=== PATIENT | female | born 1940 | race Two or more races ===

== ENCOUNTER 2021-11-20 19:02 | Emergency (ER) | payer MEDICARE, OTHER ==
[~2021-11-20] VITALS: Ht 154.9 cm; Wt 54.4 kg
[2021-11-21] MEDS ORDERED: LORazepam 2MG/ML-1ML VIAL ONE (06:30)
[2021-11-21] MEDS ORDERED: HALOPERIDOL LACTATE 5 MG/ML INJ VIAL IM PRN (06:30)
[2021-11-21] MEDS ORDERED: LORazepam 2MG/ML-1ML VIAL IM ONE (06:30)
[2021-11-21 17:30] VITALS: BP 145/58
== END 2021-11-21 18:03 | disposition home or self-care (01) ==
LOC: EDBD 19:02 → ER 19:09
DX: S40.022A Contusion of left upper arm, initial encounter (principal); G30.9 Alzheimer's disease, unspecified; F02.80 Dementia in other diseases classified elsewhere, unspecified severity, without behavioral disturbance, psychotic disturbance, mood disturbance, and anxiety; X58.XXXA Exposure to other specified factors, initial encounter; Y93.89 Activity, other specified; Y92.89 Other specified places as the place of occurrence of the external cause; Y99.8 Other external cause status
CPT/HCPCS: 70450; 71045; 73080; 93005; 96372; 99285; J1630; J2060

== ENCOUNTER 2025-07-21 04:55 | Inpatient (IN) | payer MEDICARE, OTHER ==
[~2025-07-21] VITALS: Ht 162.6 cm; Wt 74.5 kg
--- NOTE | 2025-07-21 05:16 | ED.PDOC ---
History of Present Illness HPI Comments The patient states that is Giovanni Ferrell and was found today on the floor complaining of left hip pain and left arm pain. The patient is not on any blood thinner. The fall was unwitnessed at this time. The patient does has a history of dementia in his a poor historian. Upon arrival, she is pointing to her left humeral area as well as the left hip. Chief Complaint: Lower Extremity Time Seen by MD: 05:02 Reviewed Notes: Nurses Notes, Swimming Pool Maintenance Supervisor Notes, Medications, Allergies Allergies: Coded Allergies: NO KNOWN ALLERGIES (Unverified , 11/21/21) Information Source: Patient, Emergency Med Personnel Mode of Arrival: EMS Severity: Moderate Timing: Hours Duration: Since onset Prehospital treatment: None Location: Left hip pain and left humeral pain Past Medical History PAST MEDICAL HISTORY: Alzheimer, Dementia Surgical History: Denies all surgeries FORECLOSURE PARALEGAL History: Denies all FORECLOSURE PARALEGAL Hx Family History Family History: Reviewed,noncontributory to illness Social History Smoker: Non-Smoker Alcohol: Denies ETOH Use Drugs: Denies Drug Use Lives In: Long-Term Constitutional: denies: chills, diaphoresis, fatigue, fever, malaise, sweats, weakness, others EENTM: denies: blurred vision, double vision, ear bleeding, ear discharge, ear drainage, ear pain, ear ringing, eye pain, eye redness, hearing loss, mouth pain, mouth swelling, nasal discharge, nose bleeding, nose congestion, nose pain, photophobia, tearing, throat pain, throat swelling, voice changes, others Respiratory: denies: cough, hemoptysis, orthopnea, SOB at rest, shortness of breath, SOB with excertion, stridor, wheezing, others Cardiovascular: denies: chest pain, dizzy spells, diaphoresis, Dyspnea on exertion, edema, irregular heart beat, left arm pain, lightheadedness, palpitations, PND, syncope, others Gastrointestinal: denies: abdomen distended, abdominal pain, blood streaked bowels, constipated, diarrhea, dysphagia, difficulty swallowing, hematemesis, melena, nausea, poor appetite, poor fluid intake, rectal bleeding, rectal pain, vomiting, others Genitourinary: denies: abnormal vagina bleeding, burning, dyspareunia, dysuria, flank pain, frequency, hematuria, incontinence, pain, , vagina discharge, urgency, others Neurological: denies: dizziness, fainting, headache, left sided numbness, left sided weakness, numbness, paresthesia, pre-existing deficit, right sided numbness, right sided weakness, seizure, speech problems, tingling, tremors, weakness, others Musculoskeletal: reports: others (Left arm pain and left hip pain); denies: back pain, gout, joint pain, joint swelling, muscle pain, muscle stiffness, neck pain Integumetry: denies: bruises, change in color, change in hair/nails, dryness, laceration, lesions, lumps, rash, wounds, others Allergic/Immunocompromised: denies: Difficulty Healing, Frequent Infections, Hives, Itching, others Hematologic/Lymphatic: denies: anemia, blood clots, easy bleeding, easy bruising, swollen glands, others Endocrine: denies: excessive hunger, excessive sweating, excessive thirst, excessive urination, flushing, intolerance to cold, intolerance to heat, unexplained weight gain, unexplained weight loss, others Psychiatric: denies: anxiety, bipolar disorder, depression, hopeless, panic disorder, schizophrenia, sleepless, suicidal, others Physical Exam General Appearance: Moderate Distress, Obese HEENT: Normal ENT Inspection, Pharynx Normal, TMs Normal Neck: Full Range of Motion, Non-Tender, Normal, Normal Inspection Respiratory: Chest Non-Tender, Lungs Clear, No Accessory Muscle Use, No Res piratory Distress, Normal Breath Sounds Cardiovascular: No Edema, No JVD, No Murmur, No Gallop, Normal Peripheral Pulses, Regular Rate/Rhythm Breast Exam: Deferred Gastrointestinal: No Organomegaly, Non Tender, No Pulsatile Mass, Normal Bowel Sounds, Soft Genitalia: Deferred Pelvic: Deferred Rectal: Deferred Extremities: No calf tenderness, Normal capillary refill, No pedal edema, Tender Musculoskeletal : Location: Left Extremity Location: Arm, Hip Apperance: Limited ROM, Tenderness: Moderate Neurologic: Alert, book retailer II-XII nml as Tested, No Motor Deficits, Normal Affect, Normal Mood, No Sensory Deficits Cerebellar Function: Normal Reflexes: Normal Skin: Dry, Normal Color, Warm Lymphatic: No Adenopathy Was a procedure done? Was a procedure done?: No Differential Dx Considerations may include: Fracture, strain, dislocation X-Ray, Labs, Meds, VS Vital Signs Date Time Temp Pulse Resp B/P (MAP) Pulse Ox O2 Delivery O2 Flow Rate FiO2 07/21/25 05:48 97.8 74 16 156/57 (90) 95 97.8 07/21/25 04:55 98.1 84 18 127/81 98 98.1 EKG done The patient will be signed out to Dr. Branch Images Reviewed?: Images reviewed and evaluated by me Time of 1ST Reevaluation: 05:16 Reevaluation 1ST: Unchanged Patient Education/Counseling: Other (The patient has dementia) Family Education/Counseling: No Family Present SEPSIS Sepsis Screen Physician Orders Complete Blood Count (07/21/25 05:06) Basic Metabolic Panel (07/21/25 05:06) Heplock Iv (07/21/25 05:06) Electrocardigram (07/21/25 05:06) L Hip Complete Xray (07/21/25 05:06) L Humerus Xray (07/21/25 05:06) Vital Signs Date Time Temp Pulse Resp B/P (MAP) Pulse Ox O2 Delivery O2 Flow Rate FiO2 07/21/25 05:48 97.8 74 16 156/57 (90) 95 97.8 07/21/25 04:55 98.1 84 18 127/81 98 98.1 Departure 1 Departure Time of Disposition: 05:54 Impression: Primary Impression: History of fall Disposition: 30 STILL A PATIENT Condition: Fair Critical Care Note Critical Care Time?: No Stability Stability form required: Yes Unstable for transfer: ED Physician Assesment (Clinical assesment) Heart Score Heart Score: Heart Score Response (Comments) Value History N/A 0 EKG N/A 0 Age N/A 0 Risk Factors N/A 0 Troponin N/A 0 Total 0 ADAM MCCARTY MD Jul 21, 2025 05:16
--- NOTE | 2025-07-21 05:54 | ECG ---
[facility], [place] Test Date: 2025-07-21 Test Time: 05:49:11 Pat Name: LORY REA Department: ED Room: 0276 Gender: F Cable Inspector: CHARLOTTE : 1940 Requested By: ADAM MCCARTY Order Number: [id number] Reading MD: Julio Holloway Measurements Intervals [place] Rate: 75 P: 61 MN: 156 QRS: 30 QRSD: 128 T: 89 QT: 399 QTc: 446 Interpretive Statements Sinus rhythm Left bundle branch block Electronically Signed On 07-21-2025 17:51:09 PST by Julio Holloway Please click the below link to view image of tracing.
[2025-07-21] MEDS: KETOROLAC TROMETH 30 MG/ML 1ML VIAL IV ONE (07:15)
[2025-07-21 07:19] LABS: Potassium 5.0 mmol/L (3.5-5.1); Sodium 143 mmol/L (136-145)
[2025-07-21 07:20] LABS: Anion Gap 11 (5-15); Calcium 9.3 mg/dL (8.7-10.4); Carbon Dioxide 24 mmol/L (20-31)
[2025-07-21 07:23] LABS: Chloride 108 mmol/L (98-107)
[2025-07-21 07:25] LABS: BUN/Creatinine Ratio 16.7 (10.0-20.0); Blood Urea Nitrogen 14 mg/dL (9-23); Glucose 87 mg/dL (74-106)
--- NOTE | 2025-07-21 07:31 | DVH ---
EXAM: XY L HUMERUS XRAY HISTORY: fsll COMPARISON: None TECHNIQUE: AP and lateral views of the left humerus were performed. FINDINGS/IMPRESSION: No acute fracture of the left humerus.
--- NOTE | 2025-07-21 07:33 | DVH ---
PROCEDURE: Left hip radiographs. INDICATION: fall TECHNIQUE: 3 frontal views of the pelvis /Left hip were obtained. COMPARISON: None FINDINGS: There is fracture through the left inferior pubic ramus. There is also fracture through the left superior pubic ramus at the acetabular junction. The left hip joint space is narrowed. IMPRESSION: 1. Fractures of the left superior and inferior pubic rami.
[2025-07-21 07:44] LABS: Hematocrit 38.3 % (36.0-46.0); Hemoglobin 12.7 g/dL (12.2-16.2); Mean Corpuscular Hemoglobin 30.5 pg (28.0-32.0); Mean Corpuscular Volume 91.7 fL (80.0-100.0); Nucleated Red Blood Cells % 0.0 %
[2025-07-21 07:52] VITALS: PULSE 96; RESP 14; O2SAT 96
[2025-07-21] MEDS ORDERED: QUET100T47 PO (08:25)
--- NOTE | 2025-07-21 08:26 | DVHHP2 ---
History of Present Illness Reason for Visit: Left hip and arm pain status post fall History of Present Illness Bertha Hammonds is an 85-year-old female with past medical history of Alzheimer's and dementia who resides at [facility] who presents to the ED with left hip and arm pain status post fall. Per patient's son Steve this is a 2nd fall this week, 1st 1 was on Saturday but denies any pain, the 2nd incident patient was found on the floor on her buttocks at [facility]. Per staff at [facility] on Saturday she fell around 2:00 a.m. and this current incident occurred at 4:00 a.m.. Patient denies any loss of consciousness. Per patient's son he is a court-appointed conservator and has a POLST with DNR for the patient. He reports that he had requested for a walker but has not been able to receive it. Patient's son reports that she does not drink smoke or do any drugs. He also reports that she has been residing at [facility] for 5 years, prior to that was in [place] and did not have any family there. Steve reports that he has a oldest of 3 kids that she has. Patient's son reports that there are no sick contacts around her, denies any chest pain, fever, chills, abdominal pain, nausea, vomiting, diarrhea, or urinary symptoms. Discussed plan of care with patient's son and he is agreeable to it. 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 moist/pink Respiratory: Clear to auscultation, Normal air movement Cardiovascular: Regular rate, Normal S1, Normal S2, No murmurs Abdominal: Soft Extremities: No clubbing, No cyanosis Neuro: Sensation intact Psych/Mental Status: Other (History of dementia Alzheimer's A&O x1 at baseline) Labs/Xrays Labs Test 07/21/25 07:32 07/21/25 06:36 Range/Units White Blood Count 13.2 H 4.4-10.8 10^3/uL Red Blood Count 4.17 4.0-5.20 10^6/uL Hemoglobin 12.7 12.2-16.2 g/dL Hematocrit 38.3 36.0-46.0 % Mean Corpuscular Volume 91.7 80.0-100.0 fL Mean Corpuscular Hemoglobin 30.5 28.0-32.0 pg Mean Corpuscular Hemoglobin Concent 33.3 32.0-36.0 g/dL Red Cell Distribution Width 14.4 H 11.8-14.3 % Platelet Count 174 140-450 10^3/uL Mean Platelet Volume 8.2 6.9-10.8 fL Neutrophils (%) (Auto) 88.9 H 37.0-80.0 % Lymphocytes (%) (Auto) 5.7 L 10.0-50.0 % Monocytes (%) (Auto) 4.8 0.0-12.0 % Eosinophils (%) (Auto) 0.5 0.0-7.0 % Basophils (%) (Auto) 0.1 0.0-2.0 % Neutrophils # (Auto) 11.7 H 1.6-8.6 10 ^3/uL Lymphocytes # (Auto) 0.7 0.4-5.4 10 ^3/uL Monocytes # (Auto) 0.6 0-1.3 10 ^3/uL Eosinophils # (Auto) 0.1 0-0.8 10 ^3/uL Basophils # (Auto) 0 0-0.2 10 ^3/uL Nucleated Red Blood Cells 0.0 % Sodium Level 143 136-145 mmol/L Potassium Level 5.0 3.5-5.1 mmol/L Chloride Level 108 H 98-107 mmol/L Carbon Dioxide Level 24 20-31 mmol/L Anion Gap 11 5-15 Blood Urea Nitrogen 14 9-23 mg/dL Creatinine 0.84 0.550-1.02 mg/dL Glomerular Filtration Rate Calc 68 >90 mL/min BUN/Creatinine Ratio 16.7 10.0-20.0 Serum Glucose 87 74-106 mg/dL Calcium Level 9.3 8.7-10.4 mg/dL PROCEDURE: Left hip radiographs. INDICATION: fall TECHNIQUE: 3 frontal views of the pelvis /Left hip were obtained. COMPARISON: None FINDINGS: There is fracture through the left inferior pubic ramus. There is also fracture through the left superior pubic ramus at the acetabular junction. The left hip joint space is narrowed. IMPRESSION: 1. Fractures of the left superior and inferior pubic rami. EXAM: XY L HUMERUS XRAY HISTORY: fsll COMPARISON: None TECHNIQUE: AP and lateral views of the left humerus were performed. FINDINGS/IMPRESSION: No acute fracture of the left humerus. SEPSIS Sepsis Screen Date sepsis recognized/suspect: Jul 21, 2025 Time Sepsis recognized/suspect: 0553 Recent Procedure: No On Antibiotic Therapy: No Respiratory Rate >20: No Heart Rate >90: No Temp<36 C (96.8 F) or >38.3 C: No SBP <90 or MAP <65 mmHG: No New Acute Mental Status Change: No Is the patient on CPAP, BIPAP,: No Physician Orders Heplock Iv (07/21/25 05:06) L Hip Complete Xray (07/21/25 05:06) L Humerus Xray (07/21/25 05:06) Ondansetron Hcl (Zofran) (07/21/25 07:15) Vital Signs Date Time Temp Pulse Resp B/P (MAP) Pulse Ox O2 Delivery O2 Flow Rate FiO2 07/21/25 07:52 96 14 96 Room Air* 0 21 07/21/25 07:30 97.9 91 15 144/55 (84) 96 97.9 07/21/25 05:49 75 07/21/25 05:48 97.8 74 16 156/57 (90) 95 97.8 07/21/25 04:55 98.1 84 18 127/81 98 98.1 Laboratory Tests Test 07/21/25 07:32 White Blood Count 13.2 10^3/uL (4.4-10.8) H Assessment/Plan Assessment/Plan Assessment Intractable left hip and left arm pain secondary to left pubic rami fracture status post fall Leukocytosis likely reactive History of Alzheimer's History of dementia Plan Admit to med surge Antiemetics Pain management White count noted Left humerus x-ray noted Left hip x-ray noted EKG UA CRP CT head ordered Chest x-ray Bilateral lower extremity venous ultrasound to rule out DVT NPO until ortho sees IV fluids Home medications reconciled DVT prophylaxis-Lovenox PUD prophylaxis-not indicated no history of GERD or GI bleed Discussed plan of care with patient, patient's son, and nurse Ortho consult [id number] Preventive counseling healthy eating habits, physical activity, and regular checkups Patient from [facility] and has resided there for 5 years Patient is DNR Plan discussed with: Son, Other Date of Service: Jul 21, 2025 Billing Provider: SHAHEEN ADDISON Common Visit Codes: [id number] INP/OBS CARE (HIGH) Secondary Visit Codes: [id number] COUNSELING IND SHAHEEN ADDISON Jul 21, 2025 08:26
[2025-07-21] MEDS: ONDANSETRON HCL 4 MG/2 ML VIAL IV ONE (08:28)
[2025-07-21] MEDS ORDERED: ONDANSETRON HCL 4 MG/2 ML VIAL IV PRN (08:30)
[2025-07-21] MEDS: MORPHINE SULFATE 4 MG/ML SYR/VIAL IV ONE (08:31)
[2025-07-21] MEDS ORDERED: ESCI20TA PO (09:18)
[2025-07-21] MEDS ORDERED: OMEP20TA PO (09:18)
[2025-07-21] MEDS ORDERED: GABA-1308 PO (09:18)
[2025-07-21] MEDS ORDERED: AML5T PO (09:18)
--- NOTE | 2025-07-21 09:50 | DVH ---
CLINICAL HISTORY: s/p fall TECHNIQUE: Color and duplex doppler imagine of the bilateral lower extremity veins was performed. Vessel compression and augmentation if possible was also performed. COMPARISON: None FINDINGS: Right Lower Extremity: Right common femoral vein: Normal compressibility and flow. Right superficial femoral vein: Normal compressibility and flow. Right popliteal vein: Normal compressibility and flow. Left Lower Extremity: Left common femoral vein: Normal compressibility and flow. Left superficial femoral vein: Normal compressibility and flow. Left popliteal vein: Not seen. IMPRESSION: Mildly limited exam with no sonographic evidence for DVT in the imaged lower extremity veins.
--- NOTE | 2025-07-21 10:09 | DVH ---
CLINICAL HISTORY: s/p fall unwitnessed and found on ground TECHNIQUE: Helical scanning was performed of the head from the skull base to the vertex. Multiplanar reconstructions were performed. This exam was performed according to our departmental dose optimization program. Up-to-date CT equipment and radiation dose reduction techniques are utilized as appropriate. CTDI 41 DLP 798 COMPARISON: HEAD WITHOUT CONTRAST on DOS: 11/21/21 FINDINGS: There is no evidence for acute intracranial hemorrhage, acute ischemic changes, mass, mass effect, or extra-axial fluid collection. There is no hydrocephalus or midline shift. There is no effacement of the cerebral sulci and basal subarachnoid cisterns. The mobley-white matter differentiation is well maintained. There is moderate brain volume loss and minimal chronic small vessel ischemic change. There has been bilateral cataract extraction. The imaged paranasal sinuses are clear. IMPRESSION: NO ACUTE INTRACRANIAL ABNORMALITY SEEN.
--- NOTE | 2025-07-21 10:12 | DVH ---
CHEST RADIOGRAPH Indication: baseline Technique: Single frontal view of the chest was obtained Comparison: CHEST PORTABLE on DOS: 11/20/21, CXRP on DOS: 11/20/21 FINDINGS: Lines and Tubes: None Lungs: No focal consolidation. Pleura: No effusion. No pneumothorax. Cardiomediastinal contours: Unremarkable Bones: No acute osseous abnormality. IMPRESSION: 1. No acute cardiopulmonary disease.
[2025-07-21 10:31] LABS: Urine Protein, UAD Negative (Negative)
[2025-07-21] MEDS: SODIUM CHLORIDE 0.9% 1,000 ML IV SCH (11:35)
[2025-07-21] MEDS: ENOXAPARIN SOD 40 MG/0.4 ML SYRINGE SC SCH (11:40)
[2025-07-21] MEDS: HYDROcodone-ACET 5/325MG TAB PO PRN (14:17)
[2025-07-21] MEDS: GABAPENTIN 100 MG CAP PO SCH (14:17)
[2025-07-21] MEDS: ERGOCALCIFEROL 50,000 UNIT(1.25MG) CAP PO SCH (14:17)
[2025-07-21] MEDS: KETOROLAC TROMETH 30 MG/ML 1ML VIAL ONE (15:16)
[2025-07-21 17:00] VITALS: BP 115/54; PULSE 92; RESP 18; TEMP 98; O2SAT 92
[2025-07-21 17:13] VITALS: PULSE 90; RESP 99; O2SAT 99
--- NOTE | 2025-07-21 17:17 | DVHINCON2 ---
Consult Note Consult Consult Note Reason for Consult: Left hip pain after fall pelvic rami fractures Referring Service: Emergency Department HISTORY OF PRESENT ILLNESS: Bertha Richter is an 85-year-old female with past medical history of Alzheimer's and dementia who resides at [facility] who presents to the ED with left hip pain status post fall, was brought to the Emergency Department by EMS after a ground-level fall at home. Her family member reports that she complained of deep left hip pain immediately after the fall. Due to her cognitive impairment, the patient is a limited historian. Emergency Department radiographs revealed superior and inferior pubic rami fractures with minimal displacement. No additional injuries were reported by the patient or observed by staff. She denies other joint pain, numbness, tingling, or additional complaints. Her is at bedside and provided supplemental history. PHYSICAL EXAMINATION: General: Appears uncomfortable due to pain; confused at baseline due to dementia. Alert but disoriented. Skin: No open wounds or skin lesions noted. Left Hip/Pelvis: Pain with any attempted movement of the left hip. ROM exam limited due to pain. No gross deformity observed. Neurovascular: Gross neurovascular status intact in bilateral lower extremities. Sensory and motor function preserved. Dorsalis pedis and posterior tibial pulses 2+. Other Extremities: No tenderness or pain reported or elicited on exam. IMAGING: Pelvis X-ray: Demonstrates superior and inferior pubic rami fractures, minimally displaced. No acetabular involvement. No femoral neck fracture identified. ASSESSMENT: Left superior and inferior pubic rami fractures (minimally displaced) Ground-level fall Dementia, baseline cognitive impairment Pain limiting mobility These fractures are stable pelvic ring injuries and typically treated non- operatively. PLAN: Patient currently is being admited for pain control by inpatient teams , RECS FOR TEAM are as follows : Weight-bearing: Weight-bearing as tolerated (WBAT) with protective walker-assisted ambulation. Avoid twisting or high-impact activity. 2. Pain Control: Managed by ER/inpatient team. Adequate pain control is essential for mobilization. 3. Physical Therapy: Recommend inpatient PT/OT evaluation once admitted. Focus on gait training, safe transfers, and use of walker. If patient is unable to ambulate safely or perform ADLs as inpatient OBTAIN A CT AND RECONSULT ORTHO otherwise discharge to Home vs SNF 6. Follow-up: Outpatient orthopedic follow-up in 1-2 weeks or earlier if pain worsens after discharge. 7. Education: Discussed imaging findings and treatment plan with patients . All questions answered. Patient and agree with the plan. Plan discussed with: Patient, Son, Other (beside nurse and family member ) Visit Coding Surgery Date of Service if different f: Jul 21, 2025 Billing Provider: ZULEYKA CHÁVEZ Surgery Visit Codes: 30425 - INP CONSULT <55 MIN ZULEYKA CHÁVEZ Jul 21, 2025 17:17
[2025-07-21] MEDS ORDERED: VALS320T PO (17:42)
[2025-07-21] MEDS ORDERED: ERGO1CAP23 PO (17:42)
[2025-07-21 20:00] VITALS: PULSE 93; RESP 16; O2SAT 98
[2025-07-21 21:00] VITALS: BP 133/76; PULSE 93; RESP 16
[2025-07-22] VITALS (8 sets, daily range): BP systolic 118–141; BP diastolic 67–79; PULSE 89–92; RESP 16–18; TEMP 97.6–98.5; O2SAT 90–96
[2025-07-22] MEDS: ACETAMINOPHEN 325 MG TAB PO PRN (06:05)
[2025-07-22 06:11] LABS: Hematocrit 35.7 % (36.0-46.0); Hemoglobin 11.9 g/dL (12.2-16.2); Mean Corpuscular Hemoglobin 30.9 pg (28.0-32.0); Mean Corpuscular Volume 92.6 fL (80.0-100.0); Nucleated Red Blood Cells % 0.1 %
[2025-07-22 06:30] LABS: Alanine Aminotransferase 18 U/L (7-40); Anion Gap 11 (5-15); BUN/Creatinine Ratio 18.2 (10.0-20.0); Blood Urea Nitrogen 18 mg/dL (9-23); Calcium 8.9 mg/dL (8.7-10.4); Carbon Dioxide 23 mmol/L (20-31); Glucose 98 mg/dL (74-106); Potassium 5.0 mmol/L (3.5-5.1); Sodium 141 mmol/L (136-145); Total Protein 6.6 g/dL (5.7-8.2)
[2025-07-22 06:31] LABS: Albumin 3.7 g/dL (3.2-4.8); Bilirubin, Total 1.1 mg/dL (0.2-1.0)
[2025-07-22 06:35] LABS: Alkaline Phosphatase 123 U/L (46-116); Chloride 107 mmol/L (98-107)
[2025-07-22] MEDS: PANTOPRAZOLE 40 MG TAB PO SCH (11:18)
[2025-07-22] MEDS: VALSARTAN 80 MG TAB PO SCH (11:20)
[2025-07-22] MEDS: MORPHINE SULFATE 4 MG/ML SYR/VIAL IV PRN (16:28)
--- NOTE | 2025-07-22 16:30 | DVHPN2 ---
Subjective Patient could not participate with physical therapy as she was in too much pain. Patient's son at bedside was updated. Changes from previous H/P or p: No Changes Musculoskeletal: other (Left hip pain), arm pain Objective Vitals Vital Signs Date Time Temp Pulse Resp B/P (MAP) Pulse Ox O2 Delivery O2 Flow Rate FiO2 07/22/25 16:28 91 16 127/71 07/22/25 08:43 98.3 90 98.3 07/22/25 08:00 Nasal Cannula* 3 32 Intake/Output Intake and Output 07/22/25 07:00 Intake Total 150 ml Output Total 300 ml Balance -150 ml Intake Oral 0 ml IV Total 150 ml Output Urine Total 300 ml Exam HEENT pupils are reactive Neck is supple CV is S1-S2 regular rate and rhythm Respiratory diminished breath sounds bases GI positive bowel sound Extremity no edema STAFF RESPIRATORY THERAPIST motor sensory current four extremities Medications Current Medications Medications Dose Ordered Sig/Doyle Route Start Time Stop Time Status Last Admin Dose Admin Sodium Chloride 1,000 ml @ 60 mls/hr [id number] IV 07/21/25 08:30 07/21/25 11:35 60 MLS/HR Acetaminophen/ Hydrocodone Bitart 1 tab Q4HP PRN PO 07/21/25 08:30 07/22/25 11:19 1 TAB Ondansetron HCl 4 mg Q4HP PRN IV 07/21/25 08:30 Acetaminophen 650 mg Q6HP PRN PO 07/21/25 08:30 07/22/25 06:05 650 MG Enoxaparin Sodium 40 mg DAILY SC 07/21/25 10:00 07/22/25 11:21 40 MG Quetiapine Fumarate 100 mg BID PO 07/21/25 10:00 07/22/25 11:19 100 MG Amlodipine Besylate 5 mg DAILY PO 07/22/25 10:00 07/22/25 11:19 5 MG Gabapentin 100 mg TID PO 07/21/25 14:00 07/22/25 13:15 100 MG Patient Own Medication 1 tab DAILY PO 07/22/25 10:00 Pantoprazole Sodium 40 mg DAILY PO 07/22/25 10:00 07/22/25 11:18 40 MG Valsartan 160 mg DAILY PO 07/22/25 10:00 07/22/25 11:20 160 MG Ergocalciferol 50,000 unit Q7D PO 07/21/25 11:45 07/21/25 14:17 50,000 UNIT Morphine Sulfate 1 mg Q4HP PRN IV 07/21/25 16:15 07/22/25 16:28 1 MG Laboratory Results Laboratory Tests 07/22/25 04:55 Chemistry Test 07/22/25 04:55 Albumin 3.7 g/dL (3.2-4.8) Calcium Level 8.9 mg/dL (8.7-10.4) Total Protein 6.6 g/dL (5.7-8.2) LFT Test 07/22/25 04:55 Alanine Aminotransferase (ALT) 18 U/L (7-40) Alkaline Phosphatase 123 U/L (46-116) H Aspartate Amino Transferase (AST) 26 U/L (13-40) Total Bilirubin 1.1 mg/dL (0.2-1.0) H Urinalysis Test 07/21/25 10:11 Urine Color Light-yellow (Yellow) Urine Clarity Clear (Clear) Urine pH 6.5 (5.0-9.0) Urine Specific [place] 1.015 (1.001-1.035) Urine Protein Negative (Negative) Urine Ketones Negative (Negative) Urine Blood Negative /uL (Negative) Urine Nitrite 2+ (Negative) H Urine Bilirubin Negative (Negative) Urine Urobilinogen Normal mg/dL (Negative) Urine Leukocyte Esterase Negative /uL (Negative) Urine RBC 2 /hpf (0 - 4) Urine Microscopic WBC 4 /HPF (0-5) Urine Squamous Epithelial Cells Few /hpf (<5) Urine Bacteria Few /hpf (None Seen) H Urine Glucose Normal mg/dL (Normal) Assessment/Plan Assessment/Plan 85-year-old female with a known history of Alzheimer dementia who was living in [facility] presented to the hospital with a fall found to have 1. Left hip pain with a fracture of the left pubic rami superior and inferior 2. Leukocytosis likely reactive 3. Alzheimer dementia -pain meds as needed, PT evaluation and treatment, discharge plan to half-way facility for physical therapy and pain management once participated with the physical therapy. Plan discussed with: Patient, Son Problem List: (1) Contusion (2) History of fall Date of Service: Jul 22, 2025 Billing Provider: EMA LUCERO MD Common Visit Codes: [id number] INP/OBS CARE(HIGH) EMA LUCERO MD Jul 22, 2025 16:30
[2025-07-23 05:00] VITALS: BP 120/78; PULSE 89; RESP 18; TEMP 97.8; O2SAT 94
[2025-07-23 08:00] VITALS: PULSE 91; RESP 16; O2SAT 94
[2025-07-23 09:00] VITALS: BP 107/55; PULSE 85; RESP 17; TEMP 97.7; O2SAT 95
[2025-07-23 13:00] VITALS: BP 123/40; PULSE 74; RESP 16; TEMP 98.6; O2SAT 94
[2025-07-23 17:00] VITALS: BP 128/76; PULSE 96; RESP 16; TEMP 98; O2SAT 92
[2025-07-23 21:00] VITALS: BP_SYST 148; BP_SYST 98; BP_DIAS 46; BP_DIAS 61; PULSE 94; RESP 16; TEMP 98.1; O2SAT 95
[2025-07-24] VITALS (7 sets, daily range): BP systolic 129–147; BP diastolic 61–73; PULSE 85–96; RESP 16–18; TEMP 97.5–98.7; O2SAT 91–97
--- NOTE | 2025-07-24 12:30 | DVHPN2 ---
Reviewed: Care Plan, H&P, Labs, Medications Changes from previous H/P or p: No Changes General: Per HPI Musculoskeletal: other (Left hip pain), arm pain Objective Vitals Vital Signs Date Time Temp Pulse Resp B/P (MAP) Pulse Ox O2 Delivery O2 Flow Rate FiO2 07/24/25 10:00 137/64 07/24/25 08:07 91 16 94 Nasal Cannula* 3 32 07/24/25 05:00 98.2 98.2 Intake/Output Intake and Output 07/24/25 07:00 Intake Total 1575 ml Output Total 1300 ml Balance 275 ml Intake Oral 675 ml IV Total 900 ml Output Urine Total 1300 ml Medications Current Medications Medications Dose Ordered Sig/Doyle Route Start Time Stop Time Status Last Admin Dose Admin Sodium Chloride 1,000 ml @ 60 mls/hr [id number] IV 07/21/25 08:30 07/24/25 00:34 60 MLS/HR Acetaminophen/ Hydrocodone Bitart 1 tab Q4HP PRN PO 07/21/25 08:30 07/23/25 06:08 1 TAB Ondansetron HCl 4 mg Q4HP PRN IV 07/21/25 08:30 Acetaminophen 650 mg Q6HP PRN PO 07/21/25 08:30 07/24/25 10:50 650 MG Enoxaparin Sodium 40 mg DAILY SC 07/21/25 10:00 07/24/25 10:00 40 MG Quetiapine Fumarate 100 mg BID PO 07/21/25 10:00 07/24/25 10:00 100 MG Amlodipine Besylate 5 mg DAILY PO 07/22/25 10:00 07/24/25 10:00 5 MG Gabapentin 100 mg TID PO 07/21/25 14:00 07/24/25 05:27 100 MG Patient Own Medication 1 tab DAILY PO 07/22/25 10:00 07/24/25 10:00 1 TAB Pantoprazole Sodium 40 mg DAILY PO 07/22/25 10:00 07/24/25 10:00 40 MG Valsartan 160 mg DAILY PO 07/22/25 10:00 07/24/25 10:00 160 MG Ergocalciferol 50,000 unit Q7D PO 07/21/25 11:45 07/21/25 14:17 50,000 UNIT Morphine Sulfate 1 mg Q4HP PRN IV 07/21/25 16:15 07/24/25 05:41 1 MG Laboratory Results Laboratory Tests 07/22/25 04:55 Urinalysis Test 07/21/25 10:11 Urine Color Light-yellow (Yellow) Urine Clarity Clear (Clear) Urine pH 6.5 (5.0-9.0) Urine Specific [place] 1.015 (1.001-1.035) Urine Protein Negative (Negative) Urine Ketones Negative (Negative) Urine Blood Negative /uL (Negative) Urine Nitrite 2+ (Negative) H Urine Bilirubin Negative (Negative) Urine Urobilinogen Normal mg/dL (Negative) Urine Leukocyte Esterase Negative /uL (Negative) Urine RBC 2 /hpf (0 - 4) Urine Microscopic WBC 4 /HPF (0-5) Urine Squamous Epithelial Cells Few /hpf (<5) Urine Bacteria Few /hpf (None Seen) H Urine Glucose Normal mg/dL (Normal) Labs and/or images reviewed: Labs reviewed by me, Image(s) reviewed by me Assessment/Plan Assessment/Plan 85-year-old female with a known history of Alzheimer dementia who was living in [facility] presented to the hospital with a fall found to have 1. Left hip pain with a fracture of the left pubic rami superior and inferior 2. Leukocytosis likely reactive 3. Alzheimer dementia -pain meds as needed, PT evaluation and treatment, discharge plan to long term facility for physical therapy and pain management once participated with the physical therapy. Plan discussed with: Patient Date of Service: Jul 23, 2025 Billing Provider: FAVIOLA LUGO DO Common Visit Codes: [id number] INP/OBS CARE(HIGH) FAVIOLA LUGO DO Jul 24, 2025 12:30
--- NOTE | 2025-07-24 12:32 | DVHPN2 ---
Reviewed: Care Plan, H&P, Labs, Medications Changes from previous H/P or p: No Changes General: Per HPI Musculoskeletal: other (Left hip pain), arm pain Objective Vitals Vital Signs Date Time Temp Pulse Resp B/P (MAP) Pulse Ox O2 Delivery O2 Flow Rate FiO2 07/24/25 10:00 137/64 07/24/25 08:07 91 16 94 Nasal Cannula* 3 32 07/24/25 05:00 98.2 98.2 Intake/Output Intake and Output 07/24/25 07:00 Intake Total 1575 ml Output Total 1300 ml Balance 275 ml Intake Oral 675 ml IV Total 900 ml Output Urine Total 1300 ml Medications Current Medications Medications Dose Ordered Sig/Doyle Route Start Time Stop Time Status Last Admin Dose Admin Sodium Chloride 1,000 ml @ 60 mls/hr [id number] IV 07/21/25 08:30 07/24/25 00:34 60 MLS/HR Acetaminophen/ Hydrocodone Bitart 1 tab Q4HP PRN PO 07/21/25 08:30 07/23/25 06:08 1 TAB Ondansetron HCl 4 mg Q4HP PRN IV 07/21/25 08:30 Acetaminophen 650 mg Q6HP PRN PO 07/21/25 08:30 07/24/25 10:50 650 MG Enoxaparin Sodium 40 mg DAILY SC 07/21/25 10:00 07/24/25 10:00 40 MG Quetiapine Fumarate 100 mg BID PO 07/21/25 10:00 07/24/25 10:00 100 MG Amlodipine Besylate 5 mg DAILY PO 07/22/25 10:00 07/24/25 10:00 5 MG Gabapentin 100 mg TID PO 07/21/25 14:00 07/24/25 05:27 100 MG Patient Own Medication 1 tab DAILY PO 07/22/25 10:00 07/24/25 10:00 1 TAB Pantoprazole Sodium 40 mg DAILY PO 07/22/25 10:00 07/24/25 10:00 40 MG Valsartan 160 mg DAILY PO 07/22/25 10:00 07/24/25 10:00 160 MG Ergocalciferol 50,000 unit Q7D PO 07/21/25 11:45 07/21/25 14:17 50,000 UNIT Morphine Sulfate 1 mg Q4HP PRN IV 07/21/25 16:15 07/24/25 05:41 1 MG Laboratory Results Laboratory Tests 07/22/25 04:55 Urinalysis Test 07/21/25 10:11 Urine Color Light-yellow (Yellow) Urine Clarity Clear (Clear) Urine pH 6.5 (5.0-9.0) Urine Specific [place] 1.015 (1.001-1.035) Urine Protein Negative (Negative) Urine Ketones Negative (Negative) Urine Blood Negative /uL (Negative) Urine Nitrite 2+ (Negative) H Urine Bilirubin Negative (Negative) Urine Urobilinogen Normal mg/dL (Negative) Urine Leukocyte Esterase Negative /uL (Negative) Urine RBC 2 /hpf (0 - 4) Urine Microscopic WBC 4 /HPF (0-5) Urine Squamous Epithelial Cells Few /hpf (<5) Urine Bacteria Few /hpf (None Seen) H Urine Glucose Normal mg/dL (Normal) Assessment/Plan Assessment/Plan 85-year-old female with a known history of Alzheimer dementia who was living in [facility] presented to the hospital with a fall found to have 1. Left hip pain with a fracture of the left pubic rami superior and inferior 2. Leukocytosis likely reactive 3. Alzheimer dementia -pain meds as needed, PT evaluation and treatment, discharge plan to halfway facility for physical therapy and pain management once participated with the physical therapy. Plan discussed with: Patient Date of Service: Jul 24, 2025 Billing Provider: FAVIOLA LUGO DO Common Visit Codes: [id number] INP/OBS CARE(HIGH) FAVIOLA LUGO DO Jul 24, 2025 12:32
[2025-07-25 01:00] VITALS: BP 136/66; PULSE 101; RESP 17; TEMP 98.6; O2SAT 93
[2025-07-25 09:00] VITALS: BP 142/78; PULSE 96; RESP 19; TEMP 98.2; O2SAT 93
[2025-07-25 13:00] VITALS: BP 143/79; PULSE 74; RESP 18; TEMP 97.9; O2SAT 96
[2025-07-25] MEDS: LORazepam 2MG/ML-1ML VIAL IV PRN (16:52)
[2025-07-25 21:00] VITALS: BP 147/78; PULSE 98; RESP 20; TEMP 96.9; O2SAT 92
[2025-07-26 01:00] VITALS: BP 146/83; PULSE 98; RESP 20; O2SAT 94
[2025-07-26 05:00] VITALS: BP 133/84; PULSE 98; RESP 20; O2SAT 91
--- NOTE | 2025-07-26 08:09 | DVHPN2 ---
Reviewed: Care Plan, H&P, Labs, Medications Changes from previous H/P or p: No Changes General: Per HPI Musculoskeletal: other (Left hip pain), arm pain Objective Vitals Vital Signs Date Time Temp Pulse Resp B/P (MAP) Pulse Ox O2 Delivery O2 Flow Rate FiO2 07/26/25 05:00 98 20 133/84 (100) 91 07/25/25 21:00 96.9 96.9 07/25/25 20:05 Room Air* 0 21 Intake/Output Intake and Output 07/26/25 07:00 Intake Total 280 ml Output Total 350 ml Balance -70 ml Intake Oral 100 ml IV Total 180 ml Output Urine Total 350 ml # Bowel Movements 1 Medications Current Medications Medications Dose Ordered Sig/Doyle Route Start Time Stop Time Status Last Admin Dose Admin Sodium Chloride 1,000 ml @ 60 mls/hr [id number] IV 07/21/25 08:30 07/25/25 14:49 60 MLS/HR Acetaminophen/ Hydrocodone Bitart 1 tab Q4HP PRN PO 07/21/25 08:30 07/23/25 06:08 1 TAB Ondansetron HCl 4 mg Q4HP PRN IV 07/21/25 08:30 Acetaminophen 650 mg Q6HP PRN PO 07/21/25 08:30 07/24/25 10:50 650 MG Enoxaparin Sodium 40 mg DAILY SC 07/21/25 10:00 07/25/25 10:23 40 MG Quetiapine Fumarate 100 mg BID PO 07/21/25 10:00 07/25/25 10:24 100 MG Amlodipine Besylate 5 mg DAILY PO 07/22/25 10:00 07/25/25 10:24 5 MG Gabapentin 100 mg TID PO 07/21/25 14:00 07/24/25 21:54 100 MG Patient Own Medication 1 tab DAILY PO 07/22/25 10:00 07/24/25 10:00 1 TAB Pantoprazole Sodium 40 mg DAILY PO 07/22/25 10:00 07/25/25 10:24 40 MG Valsartan 160 mg DAILY PO 07/22/25 10:00 07/25/25 10:25 160 MG Ergocalciferol 50,000 unit Q7D PO 07/21/25 11:45 07/21/25 14:17 50,000 UNIT Morphine Sulfate 1 mg Q4HP PRN IV 07/21/25 16:15 07/24/25 05:41 1 MG Lorazepam 2 mg Q6HPRN PRN IV 07/25/25 16:45 07/25/25 16:52 2 MG Laboratory Results Laboratory Tests 07/22/25 04:55 Urinalysis Test 07/21/25 10:11 Urine Color Light-yellow (Yellow) Urine Clarity Clear (Clear) Urine pH 6.5 (5.0-9.0) Urine Specific [place] 1.015 (1.001-1.035) Urine Protein Negative (Negative) Urine Ketones Negative (Negative) Urine Blood Negative /uL (Negative) Urine Nitrite 2+ (Negative) H Urine Bilirubin Negative (Negative) Urine Urobilinogen Normal mg/dL (Negative) Urine Leukocyte Esterase Negative /uL (Negative) Urine RBC 2 /hpf (0 - 4) Urine Microscopic WBC 4 /HPF (0-5) Urine Squamous Epithelial Cells Few /hpf (<5) Urine Bacteria Few /hpf (None Seen) H Urine Glucose Normal mg/dL (Normal) Labs and/or images reviewed: Labs reviewed by me, Image(s) reviewed by me Assessment/Plan Assessment/Plan 85-year-old female with a known history of Alzheimer dementia who was living in [facility] presented to the hospital with a fall found to have 1. Left hip pain with a fracture of the left pubic rami superior and inferior 2. Leukocytosis likely reactive 3. Alzheimer dementia -pain meds as needed, PT evaluation and treatment, discharge plan to [facility] facility for physical therapy and pain management once participated with the physical therapy. Plan discussed with: Patient My Orders Orders - FAVIOLA LUGO DO Procedure Category Date Status Time Lorazepam 2mg/Ml Inj PHA 07/25/25 In Process (Ativan Inj) 16:45 Date of Service: Jul 25, 2025 Billing Provider: FAVIOLA LUOG DO Common Visit Codes: [id number] INP/OBS CARE(HIGH) FAVIOLA LUGO DO Jul 26, 2025 08:09
[2025-07-26 09:00] VITALS: BP 143/58; PULSE 109; RESP 16; TEMP 96.6; O2SAT 99
[2025-07-26 13:00] VITALS: BP 141/82; PULSE 106; RESP 18; TEMP 98.1; O2SAT 97
--- NOTE | 2025-07-26 13:37 | DVHPN2 ---
Reviewed: Care Plan, H&P, Labs, Medications Changes from previous H/P or p: No Changes General: Per HPI Musculoskeletal: other (Left hip pain), arm pain Objective Vitals Vital Signs Date Time Temp Pulse Resp B/P (MAP) Pulse Ox O2 Delivery O2 Flow Rate FiO2 07/26/25 10:05 149/58 07/26/25 08:00 Room Air* 0 21 07/26/25 05:00 98 20 91 07/25/25 21:00 96.9 96.9 Intake/Output Intake and Output 07/26/25 07:00 Intake Total 280 ml Output Total 350 ml Balance -70 ml Intake Oral 100 ml IV Total 180 ml Output Urine Total 350 ml # Bowel Movements 1 Medications Current Medications Medications Dose Ordered Sig/Doyle Route Start Time Stop Time Status Last Admin Dose Admin Sodium Chloride 1,000 ml @ 60 mls/hr [id number] IV 07/21/25 08:30 07/25/25 14:49 60 MLS/HR Acetaminophen/ Hydrocodone Bitart 1 tab Q4HP PRN PO 07/21/25 08:30 07/23/25 06:08 1 TAB Ondansetron HCl 4 mg Q4HP PRN IV 07/21/25 08:30 Acetaminophen 650 mg Q6HP PRN PO 07/21/25 08:30 07/24/25 10:50 650 MG Enoxaparin Sodium 40 mg DAILY SC 07/21/25 10:00 07/26/25 10:02 40 MG Quetiapine Fumarate 100 mg BID PO 07/21/25 10:00 07/26/25 10:04 100 MG Amlodipine Besylate 5 mg DAILY PO 07/22/25 10:00 07/26/25 10:04 5 MG Gabapentin 100 mg TID PO 07/21/25 14:00 07/24/25 21:54 100 MG Patient Own Medication 1 tab DAILY PO 07/22/25 10:00 07/24/25 10:00 1 TAB Pantoprazole Sodium 40 mg DAILY PO 07/22/25 10:00 07/26/25 10:03 40 MG Valsartan 160 mg DAILY PO 07/22/25 10:00 07/26/25 10:05 160 MG Ergocalciferol 50,000 unit Q7D PO 07/21/25 11:45 07/21/25 14:17 50,000 UNIT Morphine Sulfate 1 mg Q4HP PRN IV 07/21/25 16:15 07/24/25 05:41 1 MG Lorazepam 2 mg Q6HPRN PRN IV 07/25/25 16:45 07/25/25 16:52 2 MG Laboratory Results Laboratory Tests 07/22/25 04:55 Urinalysis Test 07/21/25 10:11 Urine Color Light-yellow (Yellow) Urine Clarity Clear (Clear) Urine pH 6.5 (5.0-9.0) Urine Specific [place] 1.015 (1.001-1.035) Urine Protein Negative (Negative) Urine Ketones Negative (Negative) Urine Blood Negative /uL (Negative) Urine Nitrite 2+ (Negative) H Urine Bilirubin Negative (Negative) Urine Urobilinogen Normal mg/dL (Negative) Urine Leukocyte Esterase Negative /uL (Negative) Urine RBC 2 /hpf (0 - 4) Urine Microscopic WBC 4 /HPF (0-5) Urine Squamous Epithelial Cells Few /hpf (<5) Urine Bacteria Few /hpf (None Seen) H Urine Glucose Normal mg/dL (Normal) Labs and/or images reviewed: Labs reviewed by me, Image(s) reviewed by me Assessment/Plan Assessment/Plan Covering for Dr. Min Left hip pain Fracture left superior and inferior pubic rami: Ortho consult by . Advised Conservative management with pain medicationa and physical therapy Alzheimer dementia Leukocytosis likely reactive Patient Lives in [facility] Time Spent 55 minutes Advanced care planning time 20 minutes Patient is full code Plan discussed with: Patient Date of Service: Jul 26, 2025 Billing Provider: CAITLYN STEPHENS MD Common Visit Codes: [id number] INP/OBS CARE(HIGH) Secondary Visit Codes: [id number] CARE PLAN 30 MINUTES CAITLYN STEPHENS MD Jul 26, 2025 13:37
[2025-07-26 17:00] VITALS: BP 148/80; PULSE 88; TEMP 97.8
[2025-07-26 21:00] VITALS: BP 74/95; PULSE 95; RESP 18; TEMP 96.5; O2SAT 95
[2025-07-27] VITALS (8 sets, daily range): BP systolic 109–163; BP diastolic 58–83; PULSE 66–102; RESP 14–18; TEMP 96.9–99.4; O2SAT 91–98
--- NOTE | 2025-07-27 12:42 | DVHPN2 ---
Reviewed: Care Plan, H&P, Labs, Medications Changes from previous H/P or p: No Changes General: Per HPI Musculoskeletal: other (Left hip pain), arm pain Objective Vitals Vital Signs Date Time Temp Pulse Resp B/P (MAP) Pulse Ox O2 Delivery O2 Flow Rate FiO2 07/27/25 10:28 143/69 07/27/25 09:00 97.3 89 17 95 97.3 07/27/25 08:00 Nasal Cannula* 2 28 Intake/Output Intake and Output 07/27/25 07:00 Intake Total 250 ml Output Total 450 ml Balance -200 ml Intake Oral 250 ml Output Urine Total 450 ml # Bowel Movements 1 Medications Current Medications Medications Dose Ordered Sig/Doyle Route Start Time Stop Time Status Last Admin Dose Admin Sodium Chloride 1,000 ml @ 60 mls/hr [id number] IV 07/21/25 08:30 07/26/25 22:09 60 MLS/HR Acetaminophen/ Hydrocodone Bitart 1 tab Q4HP PRN PO 07/21/25 08:30 07/23/25 06:08 1 TAB Ondansetron HCl 4 mg Q4HP PRN IV 07/21/25 08:30 Acetaminophen 650 mg Q6HP PRN PO 07/21/25 08:30 07/24/25 10:50 650 MG Enoxaparin Sodium 40 mg DAILY SC 07/21/25 10:00 07/27/25 10:30 40 MG Quetiapine Fumarate 100 mg BID PO 07/21/25 10:00 07/27/25 10:28 100 MG Amlodipine Besylate 5 mg DAILY PO 07/22/25 10:00 07/27/25 10:28 5 MG Gabapentin 100 mg TID PO 07/21/25 14:00 07/27/25 06:24 100 MG Patient Own Medication 1 tab DAILY PO 07/22/25 10:00 07/24/25 10:00 1 TAB Pantoprazole Sodium 40 mg DAILY PO 07/22/25 10:00 07/27/25 10:28 40 MG Valsartan 160 mg DAILY PO 07/22/25 10:00 07/26/25 10:05 160 MG Ergocalciferol 50,000 unit Q7D PO 07/21/25 11:45 07/21/25 14:17 50,000 UNIT Morphine Sulfate 1 mg Q4HP PRN IV 07/21/25 16:15 07/24/25 05:41 1 MG Lorazepam 2 mg Q6HPRN PRN IV 07/25/25 16:45 07/25/25 16:52 2 MG Laboratory Results Laboratory Tests 07/22/25 04:55 Urinalysis Test 07/21/25 10:11 Urine Color Light-yellow (Yellow) Urine Clarity Clear (Clear) Urine pH 6.5 (5.0-9.0) Urine Specific [place] 1.015 (1.001-1.035) Urine Protein Negative (Negative) Urine Ketones Negative (Negative) Urine Blood Negative /uL (Negative) Urine Nitrite 2+ (Negative) H Urine Bilirubin Negative (Negative) Urine Urobilinogen Normal mg/dL (Negative) Urine Leukocyte Esterase Negative /uL (Negative) Urine RBC 2 /hpf (0 - 4) Urine Microscopic WBC 4 /HPF (0-5) Urine Squamous Epithelial Cells Few /hpf (<5) Urine Bacteria Few /hpf (None Seen) H Urine Glucose Normal mg/dL (Normal) Labs and/or images reviewed: Labs reviewed by me, Image(s) reviewed by me Assessment/Plan Assessment/Plan Covering for Dr. Min Left hip pain Fracture left superior and inferior pubic rami: Ortho consult by . Advised Conservative management with pain medicationa and physical therapy Alzheimer dementia Leukocytosis likely reactive Patient Lives in [facility] Time Spent 55 minutes Advanced care planning time 20 minutes Patient is full code Jm Wilson [phone] at bed side requesting nursing home facility placement for rehab for the fracture pelvis RN Kayli bedside Physical therapy ordered Plan discussed with: Patient My Orders Orders - CAITLYN STEPHENS MD Procedure Category Date Status Time Communication Order ORDERS 07/26/25 Transmitted 14:33 Date of Service: Jul 27, 2025 Billing Provider: CAITLYN STEPHENS MD Common Visit Codes: [id number] INP/OBS CARE(HIGH) Secondary Visit Codes: [id number] CARE PLAN 30 MINUTES CAITLYN STEPHENS MD Jul 27, 2025 12:42
[2025-07-27 15:37] LABS: COVID19 ANTIGEN SOFIA FIA NEGATIVE (NEGATIVE)
[2025-07-28] VITALS (8 sets, daily range): BP systolic 115–144; BP diastolic 51–84; PULSE 74–117; RESP 16–20; TEMP 98.4–99.5; O2SAT 91–100
--- NOTE | 2025-07-28 09:39 | DVHPN2 ---
Reviewed: Care Plan, H&P, Labs, Medications Changes from previous H/P or p: No Changes General: Per HPI Musculoskeletal: other (Left hip pain), arm pain Objective Vitals Vital Signs Date Time Temp Pulse Resp B/P (MAP) Pulse Ox O2 Delivery O2 Flow Rate FiO2 07/28/25 05:00 98.8 109 16 131/62 (85) 92 98.8 07/27/25 20:00 Nasal Cannula* 2 28 Intake/Output Intake and Output 07/28/25 07:00 Intake Total 325 ml Output Total 1375 ml Balance -1050 ml Intake Oral 325 ml Output Urine Total 1375 ml Stool Total 0 ml Medications Current Medications Medications Dose Ordered Sig/Doyle Route Start Time Stop Time Status Last Admin Dose Admin Sodium Chloride 1,000 ml @ 60 mls/hr [id number] IV 07/21/25 08:30 07/27/25 14:30 60 MLS/HR Acetaminophen/ Hydrocodone Bitart 1 tab Q4HP PRN PO 07/21/25 08:30 07/23/25 06:08 1 TAB Ondansetron HCl 4 mg Q4HP PRN IV 07/21/25 08:30 Acetaminophen 650 mg Q6HP PRN PO 07/21/25 08:30 07/24/25 10:50 650 MG Enoxaparin Sodium 40 mg DAILY SC 07/21/25 10:00 07/27/25 10:30 40 MG Quetiapine Fumarate 100 mg BID PO 07/21/25 10:00 07/27/25 21:18 100 MG Amlodipine Besylate 5 mg DAILY PO 07/22/25 10:00 07/27/25 10:28 5 MG Gabapentin 100 mg TID PO 07/21/25 14:00 07/28/25 06:25 100 MG Patient Own Medication 1 tab DAILY PO 07/22/25 10:00 07/24/25 10:00 1 TAB Pantoprazole Sodium 40 mg DAILY PO 07/22/25 10:00 07/27/25 10:28 40 MG Valsartan 160 mg DAILY PO 07/22/25 10:00 07/26/25 10:05 160 MG Ergocalciferol 50,000 unit Q7D PO 07/21/25 11:45 07/21/25 14:17 50,000 UNIT Morphine Sulfate 1 mg Q4HP PRN IV 07/21/25 16:15 07/24/25 05:41 1 MG Lorazepam 2 mg Q6HPRN PRN IV 07/25/25 16:45 07/25/25 16:52 2 MG Laboratory Results Laboratory Tests 07/22/25 04:55 Urinalysis Test 07/21/25 10:11 Urine Color Light-yellow (Yellow) Urine Clarity Clear (Clear) Urine pH 6.5 (5.0-9.0) Urine Specific [place] 1.015 (1.001-1.035) Urine Protein Negative (Negative) Urine Ketones Negative (Negative) Urine Blood Negative /uL (Negative) Urine Nitrite 2+ (Negative) H Urine Bilirubin Negative (Negative) Urine Urobilinogen Normal mg/dL (Negative) Urine Leukocyte Esterase Negative /uL (Negative) Urine RBC 2 /hpf (0 - 4) Urine Microscopic WBC 4 /HPF (0-5) Urine Squamous Epithelial Cells Few /hpf (<5) Urine Bacteria Few /hpf (None Seen) H Urine Glucose Normal mg/dL (Normal) Labs and/or images reviewed: Labs reviewed by me, Image(s) reviewed by me Assessment/Plan Assessment/Plan Acute Left hip pain Fracture left superior and inferior pubic rami: Ortho consult by . Advised Conservative management with pain medicationa and physical therapy Alzheimer dementia Leukocytosis likely reactive Patient Lives in [facility] Time Spent 55 minutes Advanced care planning time 20 minutes Patient is full code Jm Wilson [phone] at bed side requesting correction facility placement for rehab for the fracture pelvis RN Kayli bedside Physical therapy ordered Plan discussed with: Patient My Orders Orders - CAITLYN STEPHENS MD Procedure Category Date Status Time Pt Request For Service PT 07/27/25 Logged 12:42 Date of Service: Jul 28, 2025 Billing Provider: CAITLYN STEPHENS MD Common Visit Codes: [id number] INP/OBS CARE(HIGH) CAITLYN STEPHENS MD Jul 28, 2025 09:39
--- NOTE | 2025-07-28 09:45 | DVHDS2 ---
Discharge Summary Date of Admission Jul 21, 2025 at 08:17 Date of Discharge: Jul 28, 2025 Admitting Diagnosis Acute Pelvic fracture Wounds: Fracture left inferior superior pubic rami Labs/Diagnostic Data: Laboratory Results Test 07/27/25 15:00 07/22/25 04:55 07/21/25 10:11 07/21/25 06:36 SARS-CoV-2 Antigen (Rapid) Negative (NEGATIVE) White Blood Count 6.9 10^3/uL (4.4-10.8) Red Blood Count 3.86 10^6/uL (4.0-5.20) Hemoglobin 11.9 g/dL (12.2-16.2) Hematocrit 35.7 % (36.0-46.0) Mean Corpuscular Volume 92.6 fL (80.0-100.0) Mean Corpuscular Hemoglobin 30.9 pg (28.0-32.0) Mean Corpuscular Hemoglobin Concent 33.4 g/dL (32.0-36.0) Red Cell Distribution Width 14.0 % (11.8-14.3) Platelet Count 153 10^3/uL (140-450) Mean Platelet Volume 8.5 fL (6.9-10.8) Neutrophils (%) (Auto) 87.2 % (37.0-80.0) Lymphocytes (%) (Auto) 8.2 % (10.0-50.0) Monocytes (%) (Auto) 3.4 % (0.0-12.0) Eosinophils (%) (Auto) 0.8 % (0.0-7.0) Basophils (%) (Auto) 0.4 % (0.0-2.0) Neutrophils # (Auto) 6.0 10 ^3/uL (1.6-8.6) Lymphocytes # (Auto) 0.6 10 ^3/uL (0.4-5.4) Monocytes # (Auto) 0.2 10 ^3/uL (0-1.3) Eosinophils # (Auto) 0.1 10 ^3/uL (0-0.8) Basophils # (Auto) 0 10 ^3/uL (0-0.2) Nucleated Red Blood Cells 0.1 % Sodium Level 141 mmol/L (136-145) Potassium Level 5.0 mmol/L (3.5-5.1) Chloride Level 107 mmol/L (98-107) Carbon Dioxide Level 23 mmol/L (20-31) Anion Gap 11 (5-15) Blood Urea Nitrogen 18 mg/dL (9-23) Creatinine 0.99 mg/dL (0.550-1.02) Glomerular Filtration Rate Calc 56 mL/min (>90) BUN/Creatinine Ratio 18.2 (10.0-20.0) Serum Glucose 98 mg/dL (74-106) Calcium Level 8.9 mg/dL (8.7-10.4) Total Bilirubin 1.1 mg/dL (0.2-1.0) Aspartate Amino Transferase (AST) 26 U/L (13-40) Alanine Aminotransferase (ALT) 18 U/L (7-40) Alkaline Phosphatase 123 U/L (46-116) Total Protein 6.6 g/dL (5.7-8.2) Albumin 3.7 g/dL (3.2-4.8) Urine Color Light-yellow (Yellow) Urine Clarity Clear (Clear) Urine pH 6.5 (5.0-9.0) Urine Specific [place] 1.015 (1.001-1.035) Urine Protein Negative (Negative) Urine Ketones Negative (Negative) Urine Blood Negative /uL (Negative) Urine Nitrite 2+ (Negative) Urine Bilirubin Negative (Negative) Urine Urobilinogen Normal mg/dL (Negative) Urine Leukocyte Esterase Negative /uL (Negative) Urine RBC 2 /hpf (0 - 4) Urine Microscopic WBC 4 /HPF (0-5) Urine Squamous Epithelial Cells Few /hpf (<5) Urine Bacteria Few /hpf (None Seen) Urine Glucose Normal mg/dL (Normal) C-Reactive Protein High Sensitivity 0.39 mg/dL (<1.0) Other Laboratory Tests 07/22/25 04:55 Brief Hx & Hospital Course: 85-year-old female with severe Alzheimer dementia living in [facility] had a mechanical fall came in with a hip pain found to have acute fracture left superior inferior pubic rami orthopedic consult by Dr. Marshall who advised conservative management with the pain medication physical therapy. Physical therapy ordered who recommended [facility] facility placement . discussed with the patient's son Steve who agreed for [facility] placement [facility]. Patient unable to take her own decisions because of severe dementia Consults/Reason for consult orho dr marshall Operations or Procedures CT pelvis Condition at Discharge: Fair Final Diagnosis/Problems List Acute Left hip pain Fracture left superior and inferior pubic rami: Ortho consult by . Advised Conservative management with pain medicationa and physical therapy Alzheimer dementia Leukocytosis likely reactive [facility] Discharge Instruct/Medications Diet: Regular Activity: Bed rest Follow Up/Referral: Follow up With the assisted Medications: see list Scheduled Amlodipine Besylate (Norvasc Tablet), 1 TAB PO DAILY, (Reported) Amlodipine Besylate (Norvasc Tablet), 1 TAB PO DAILY, (Reported) Ergocalciferol (Vitamin D 87959 Unit), 50,000 UNIT PO QWEEKLY, (Reported) Escitalopram Oxalate (Lexapro), 1 TAB PO DAILY, (Reported) Escitalopram Oxalate (Lexapro), 1 TAB PO DAILY, (Reported) Gabapentin (Gabapentin), 1 CAP PO TID, (Reported) Gabapentin (Gabapentin), 1 CAP PO TID, (Reported) Omeprazole (Gnp Omeprazole), 40 MG PO DAILY, (Reported) Omeprazole (Gnp Omeprazole), 40 MG PO DAILY, (Reported) Quetiapine Fumerate (Quetiapine Fumarate), 1 TAB PO BID, (Reported) Valsartan (Diovan), 0.5 TAB PO DAILY, (Reported) 35 (Time Taken For discharge summary 35 minutes) Discharge Statement: "Patient was advised to return to the ER or call 911 if any headaches, dizziness, shortness of breath, chest pain, abdominal pain, bleeding, fevers, or worsening of medical condition. Patient was counseled about treatment plan, medications, possible side effects, patientverbalized understanding. All questions were answered to the best of my ability. This discharge took greater then 30 minutes in planning, reviewing documentation, counseling the patient, and discussing with other team members." ASSESSMENT ASSESSMENT Hospital Course Marginally improved Assessment Acute Left hip pain Fracture left superior and inferior pubic rami: Ortho consult by . Advised Conservative management with pain medicationa and physical therapy Alzheimer dementia Leukocytosis likely reactive Date of Service: Jul 28, 2025 Billing Provider: CAITLYN STEPHENS MD Common Visit Codes: 01169-LDO/OBS DISCH DAY >30min CAITLYN STEPHENS MD Jul 28, 2025 09:45
[2025-07-29 01:00] VITALS: BP 92/56; PULSE 102; RESP 18; TEMP 98.3; O2SAT 92
[2025-07-29 05:00] VITALS: BP 99/39; PULSE 91; RESP 17; TEMP 98.4; O2SAT 95
[2025-07-29 08:10] VITALS: PULSE 98; RESP 17; O2SAT 96
--- NOTE | 2025-07-29 10:29 | DVHPN2 ---
Reviewed: Care Plan, H&P, Labs, Medications Changes from previous H/P or p: No Changes General: Per HPI Musculoskeletal: other (Left hip pain), arm pain Objective Vitals Vital Signs Date Time Temp Pulse Resp B/P (MAP) Pulse Ox O2 Delivery O2 Flow Rate FiO2 07/29/25 05:00 98.4 91 17 99/39 (59) 95 98.4 07/28/25 20:00 Nasal Cannula* 2 28 Intake/Output Intake and Output 07/29/25 07:00 Intake Total 100 ml Output Total 650 ml Balance -550 ml Intake Oral 100 ml Output Urine Total 650 ml # Bowel Movements 1 Medications Current Medications Medications Dose Ordered Sig/Doyle Route Start Time Stop Time Status Last Admin Dose Admin Sodium Chloride 1,000 ml @ 60 mls/hr [id number] IV 07/21/25 08:30 07/29/25 04:31 60 MLS/HR Acetaminophen/ Hydrocodone Bitart 1 tab Q4HP PRN PO 07/21/25 08:30 07/23/25 06:08 1 TAB Ondansetron HCl 4 mg Q4HP PRN IV 07/21/25 08:30 Acetaminophen 650 mg Q6HP PRN PO 07/21/25 08:30 07/28/25 17:22 650 MG Enoxaparin Sodium 40 mg DAILY SC 07/21/25 10:00 07/28/25 09:39 40 MG Quetiapine Fumarate 100 mg BID PO 07/21/25 10:00 07/28/25 22:55 100 MG Amlodipine Besylate 5 mg DAILY PO 07/22/25 10:00 07/28/25 09:38 5 MG Gabapentin 100 mg TID PO 07/21/25 14:00 07/29/25 06:05 100 MG Patient Own Medication 1 tab DAILY PO 07/22/25 10:00 07/28/25 09:39 1 TAB Pantoprazole Sodium 40 mg DAILY PO 07/22/25 10:00 07/28/25 09:37 40 MG Valsartan 160 mg DAILY PO 07/22/25 10:00 07/28/25 09:38 160 MG Ergocalciferol 50,000 unit Q7D PO 07/21/25 11:45 07/28/25 15:12 50,000 UNIT Morphine Sulfate 1 mg Q4HP PRN IV 07/21/25 16:15 07/24/25 05:41 1 MG Lorazepam 2 mg Q6HPRN PRN IV 07/25/25 16:45 07/25/25 16:52 2 MG Laboratory Results Laboratory Tests 07/22/25 04:55 Urinalysis Test 07/21/25 10:11 Urine Color Light-yellow (Yellow) Urine Clarity Clear (Clear) Urine pH 6.5 (5.0-9.0) Urine Specific [place] 1.015 (1.001-1.035) Urine Protein Negative (Negative) Urine Ketones Negative (Negative) Urine Blood Negative /uL (Negative) Urine Nitrite 2+ (Negative) H Urine Bilirubin Negative (Negative) Urine Urobilinogen Normal mg/dL (Negative) Urine Leukocyte Esterase Negative /uL (Negative) Urine RBC 2 /hpf (0 - 4) Urine Microscopic WBC 4 /HPF (0-5) Urine Squamous Epithelial Cells Few /hpf (<5) Urine Bacteria Few /hpf (None Seen) H Urine Glucose Normal mg/dL (Normal) Labs and/or images reviewed: Labs reviewed by me, Image(s) reviewed by me Assessment/Plan Assessment/Plan Acute Left hip pain Fracture left superior and inferior pubic rami: Ortho consult by . Advised Conservative management with pain medicationa and physical therapy Alzheimer dementia Leukocytosis likely reactive Patient Lives in [facility] Time Spent 55 minutes Patient is more alert and awake and interactive today Patient was discharged to [facility] [place], agreeable with the son Steve, addiction social worker working on transportation Plan discussed with: Patient Date of Service: Jul 29, 2025 Billing Provider: CAITLYN STEPHENS MD Common Visit Codes: [id number] INP/OBS CARE(HIGH) CAITLYN STEPHENS MD Jul 29, 2025 10:29
[2025-07-29 12:31] VITALS: BP 132/66; PULSE 98; RESP 17; TEMP 97.9; O2SAT 96
== END 2025-07-29 13:40 | DRG 535 ==
LOC: EDBD 04:55 → ER 04:55 → OVERFLOW 08:17 → WEST WING 16:24
PROVIDERS: ADMIT Family Medicine; ATTEND Family Medicine
DX: S32.592A Other specified fracture of left pubis, initial encounter for closed fracture (principal); J96.01 Acute respiratory failure with hypoxia; Z66 Do not resuscitate; F02.80 Dementia in other diseases classified elsewhere, unspecified severity, without behavioral disturbance, psychotic disturbance, mood disturbance, and anxiety; D72.829 Elevated white blood cell count, unspecified; G30.9 Alzheimer's disease, unspecified; W18.39XA Other fall on same level, initial encounter; Z20.822 Contact with and (suspected) exposure to COVID-19; Z83.3 Family history of diabetes mellitus; Y93.89 Activity, other specified; Y99.8 Other external cause status; Y92.009 Unspecified place in unspecified non-institutional (private) residence as the place of occurrence of the external cause
CPT/HCPCS: 36415; 70450; 71045; 73060; 73502; 80048; 80053; 81001; 85025; 86141; 87426; 93005; 93970; 97110; 97116; 97162; 97530; G0378; J1885; J2405